=== PATIENT | female | born 1995 | race Caucasian/White ===

== ENCOUNTER 2017-05-30 11:46 | Day surgery (SDC) | END 2017-05-30 17:48 | disposition home or self-care (01) ==

== ENCOUNTER 2018-11-18 12:22 | Outpatient (CLI) | payer MEDICAID ==
[~2018-11-18] VITALS: Ht 170.2 cm; Wt 127.5 kg
[~2018-11-18 12:22] MED LIST: METR500T PO
[2018-11-18 12:46] VITALS: Ht 170.2 cm; Wt 127.5 kg
== END 2018-11-18 14:09 | disposition home or self-care (01) ==
LOC: L-D 12:22 → OBT 12:22
PROVIDERS: ATTEND Obstetrics & Gynecology
DX: O41.93X0 Disorder of amniotic fluid and membranes, unspecified, third trimester, not applicable or unspecified (principal); Z3A.35 35 weeks gestation of pregnancy
CPT/HCPCS: 76818; Z7500; G0463

== ENCOUNTER 2018-11-25 23:35 | Outpatient (CLI) | payer MEDICAID ==
[~2018-11-25] VITALS: Ht 170.2 cm; Wt 120.4 kg
[2018-11-25 23:55] VITALS: BP 103/56; PULSE 102; RESP 18; Ht 170.2 cm; Wt 120.4 kg
[2018-11-26] MEDS ORDERED: LACTATED RINGER'S 1,000 ML IV ONE (00:30)
[2018-11-26] MEDS ORDERED: LACTATED RINGER'S 1,000 ML IV SCH (00:30)
== END 2018-11-26 04:10 | disposition home or self-care (01) ==
LOC: OBT 23:35 → L-D 23:35 → OBT 11-26 04:10
PROVIDERS: ATTEND Obstetrics & Gynecology
DX: O26.893 Other specified pregnancy related conditions, third trimester (principal); R10.2 Pelvic and perineal pain; Z3A.36 36 weeks gestation of pregnancy
CPT/HCPCS: 36415; 76818; 80053; 81001; 85025; 96360; 96361; G0463; J7120